=== PATIENT | male | born 1955 ===

== ENCOUNTER 2022-03-19 21:53 | Observation (INO) ==
[2022-03-19] MEDS ORDERED: Aspirin 81 MG TAB.CHEW PO ONE (21:59)
[2022-03-19 22:36] LABS: Basophils % 0.7 %; Eosinophils % 0.7 %; Hematocrit 40.4 % (37.5-50.1); Hemoglobin 14.1 g/dL (12.9-16.9); Immature Granulocytes % 0.2 % (0-4); Lymphocytes # 1.2 K/mcL (0.6-4.6); Lymphocytes % 22.3 %; Mean Corpuscular HGB Conc 34.9 g/dL (31.6-35.5); Mean Corpuscular Hemoglobin 30.9 pg (28.0-33.3); Mean Corpuscular Volume 88.6 fL (83.0-100.0); Mean Platelet Volume 9.9 fL (9.4-12.4); Monocytes # 0.5 K/mcL (0.0-1.3); Monocytes % 8.3 %; Neutrophils # 3.7 K/mcL (1.6-8.9); Platelet Count 239 K/mcL (140-400); Red Blood Count 4.56 M/mcL (4.19-5.50); Red Cell Distribution Width 12.5 % (11.5-14.5); Segmented Neutrophils % 67.8 %; White Blood Count 5.4 K/mcL (4.3-11.1)
[2022-03-19 22:45] LABS: Prothrombin Time 11.2 Seconds (9.4-12.1)
[2022-03-19 22:47] LABS: Activated Partial Thrombo Time 32.1 Seconds (26.0-36.0)
[2022-03-19 22:49] LABS: Alanine Aminotransferase 16 Units/L (7-52); Albumin 4.3 g/dL (3.5-5.7); Albumin/Globulin Ratio 1.5 (1.1-2.2); Alkaline Phosphatase 70 Units/L (34-104); Aspartate Amino Transferase 22 Units/L (13-39); BUN/Creatinine Ratio 21 (6-26); Bilirubin,Direct 0.1 mg/dL (0.0-0.2); Bilirubin,Indirect 0.4 mg/dL (0.0-1.0); Bilirubin,Total 0.5 mg/dL (0.3-1.0); Blood Urea Nitrogen 20 mg/dL (8-23); Calcium 10.3 mg/dL (8.6-10.3); Carbon Dioxide 22 mEq/L (23-29); Chloride 104 mEq/L (98-107); Globulin 2.9 g/dL (2.4-3.5); Glucose 116 mg/dL (70-105); Lipase 20 Units/L (11-82); Osmolality,Calculated 284 (280-300); Potassium 4.2 mEq/L (3.5-5.1); Sodium 135 mEq/L (136-145); Total Protein 7.2 g/dL (6.4-8.9); Troponin I < 0.03 ng/mL (< 0.04)
[2022-03-19] MEDS ORDERED: Iopamidol - 370 500 ML MLS IVP ONE (22:56)
[2022-03-19 23:13] LABS: Adenovirus Not Detected (Not Detect); Bordetella Pertussis Not Detected (Not Detect); Chlamydophila pneumoniae Not Detected (Not Detect); Coronavirus 229E Not Detected (Not Detect); Coronavirus HKU1 Not Detected (Not Detect); Coronavirus NL63 Not Detected (Not Detect); Coronavirus OC43 Not Detected (Not Detect); Human Metapneumovirus Not Detected (Not Detect); Human Rhinovirus/Enterovirus Not Detected (Not Detect); Influenza A Subtype 2009 H1 Not Detected (Not Detect); Influenza B Not Detected (Not Detect); Mycoplasma pneumoniae Not Detected (Not Detect); Parainfluenza Virus 1 Not Detected (Not Detect); Parainfluenza Virus 2 Not Detected (Not Detect); Parainfluenza Virus 3 Not Detected (Not Detect); Parainfluenza Virus 4 Not Detected (Not Detect); Respiratory Syncytial Virus Not Detected (Not Detect); SARS-CoV-2 Not Detected (Not Detect)
[2022-03-19] MEDS: Nitroglycerin 0.4 MG TAB.SUBL SL PRN (23:54)
[2022-03-20] MEDS: Nitroglycerin 0.4 MG TAB.SUBL SL PRN (00:06)
[2022-03-20] MEDS ORDERED: *HR* Heparin 5,000 UNIT/ML VIAL IVP PRN ×2 (01:42)
[2022-03-20] MEDS ORDERED: *HR* Heparin 5,000 UNIT/ML VIAL IVP ONE (01:42)
[2022-03-20] MEDS ORDERED: Heparin 25,000UNIT/250ML 1/2NS 25,000 UNIT/250 ML IV.SOLN IVC SCH (01:45)
[2022-03-20] MEDS ORDERED: Naloxone 0.4 MG/ML INJ IVP PRN (02:14)
[2022-03-20] MEDS ORDERED: Ondansetron 4 MG/2 ML VIAL IVP PRN (02:14)
[2022-03-20 02:31] LABS: Hematocrit 38.3 % (37.5-50.1); Hemoglobin 13.3 g/dL (12.9-16.9); Mean Corpuscular HGB Conc 34.7 g/dL (31.6-35.5); Mean Corpuscular Volume 89.3 fL (83.0-100.0); Mean Platelet Volume 9.9 fL (9.4-12.4); Platelet Count 231 K/mcL (140-400); Red Blood Count 4.29 M/mcL (4.19-5.50); Red Cell Distribution Width 12.5 % (11.5-14.5); White Blood Count 4.8 K/mcL (4.3-11.1)
[2022-03-20 02:43] LABS: Heparin anti-factor XA UFH < 0.04 IU/mL (0.30-0.70)
[2022-03-20 02:44] LABS: INR 1.1; Prothrombin Time 11.8 Seconds (9.4-12.1)
[2022-03-20] MEDS ORDERED: *HR* OxyCODONE/APAP 10/325 TABLET PO PRN ×2 (03:39→12:50)
[2022-03-20] MEDS ORDERED: traZODone 50 MG TABLET PO SCH ×2 (03:45→21:00)
[2022-03-20] MEDS: Acetaminophen 325 MG TABLET PO PRN ×2 (04:00→12:28)
[2022-03-20] MEDS ORDERED: Regadenoson 0.4 MG/5 ML SYRINGE IVP ONE ×2 (06:23→11:52)
[2022-03-20 07:52] LABS: Hematocrit 41.5 % (37.5-50.1); Hemoglobin 14.5 g/dL (12.9-16.9); Mean Corpuscular HGB Conc 34.9 g/dL (31.6-35.5); Mean Corpuscular Hemoglobin 31.1 pg (28.0-33.3); Mean Corpuscular Volume 89.1 fL (83.0-100.0); Mean Platelet Volume 9.8 fL (9.4-12.4); Platelet Count 256 K/mcL (140-400); Red Blood Count 4.66 M/mcL (4.19-5.50); Red Cell Distribution Width 12.5 % (11.5-14.5); White Blood Count 5.6 K/mcL (4.3-11.1)
[2022-03-20 08:01] VITALS: TEMP 98.2; O2SAT 97
[2022-03-20 10:01] LABS: BUN/Creatinine Ratio 18 (6-26); Blood Urea Nitrogen 18 mg/dL (8-23); Calcium 10.4 mg/dL (8.6-10.3); Carbon Dioxide 21 mEq/L (23-29); Chloride 105 mEq/L (98-107); Glucose 102 mg/dL (70-105); Osmolality,Calculated 286 (280-300); Potassium 3.9 mEq/L (3.5-5.1); Sodium 137 mEq/L (136-145)
[2022-03-20 10:30] LABS: Troponin I < 0.03 ng/mL (< 0.04)
[2022-03-20] MEDS ORDERED: Aspirin 81 MG TAB.CHEW PO SCH (10:30)
[2022-03-20] MEDS ORDERED: Metoprolol XL (24 HR) Succ 25 MG TAB.ER.24H PO SCH (10:30)
[2022-03-20 14:18] VITALS: BP 160/101; PULSE 914
[2022-03-21] MEDS ORDERED: Sennosides/Docusate Sodium TABLET PO SCH (09:00)
[2022-03-21] MEDS ORDERED: lisinopriL 20 MG TABLET PO SCH (09:00)
== END 2022-03-20 15:35 | disposition home or self-care (01) ==
LOC: EMEROOARM 21:53 → 2NENU 21:53 → SUATTDRO 03-20 01:59 → 2NENU 03-20 03:02
PROVIDERS: ADMIT Student in an Organized Health Care Education/Training Program; ATTEND Internal Medicine